=== PATIENT | female | born 1995 | race African-American/Black ===

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

== ENCOUNTER 2018-05-03 14:27 | Emergency (ER) | payer OTHER | END 2018-05-03 19:40 | disposition home or self-care (01) | LOC: JER 14:27 → JERFT 19:40 ==

== ENCOUNTER 2021-11-16 20:55 | Emergency (ER) | payer OTHER ==
[2021-11-16 21:04] VITALS: BP 112/66; PULSE 88; RESP 18; TEMP 98.4; BMI 26.6
[2021-11-16 21:47] LABS: EPI CELLS >36 /uL (0-25.1); HYALINE CASTS 13 /uL (0-3.1); PH,URINE 5.5 (5.0-8.0); URINE APPEARANCE CLOUDY; URINE BACTERIA 1975 /uL (0-1359); URINE BILIRUBIN NEGATIVE (NEGATIVE); URINE COLOR YELLOW; URINE GLUCOSE (UA) NEGATIVE (NEGATIVE); URINE KETONE TRACE (NEGATIVE); URINE LEUK ESTERASE 2+ (NEGATIVE); URINE NITRITE NEGATIVE (NEGATIVE); URINE PROTEIN TRACE (NEGATIVE); URINE RBC 8 /uL (0-23.9); URINE WBC 375 /uL (0-25.8)
[2021-11-16] MEDS ORDERED: ONDANSETRON *ODT* 4 MG TABLET SL ONE (22:01)
[2021-11-16] MEDS ORDERED: ONDANSETRON *ODT* 4 MG TABLET ONE (22:03)
== END 2021-11-17 00:01 | disposition home or self-care (01) ==
LOC: JER 20:55
DX: O21.9 Vomiting of pregnancy, unspecified (principal); N83.202 Unspecified ovarian cyst, left side; Z3A.01 Less than 8 weeks gestation of pregnancy
CPT/HCPCS: 76801-TC; 81003; 84703; 87086; 99284-25; Q0162

== ENCOUNTER 2024-02-01 10:41 | Emergency (ER) | payer OTHER ==
[2024-02-01 10:46] VITALS: BP 136/91; PULSE 76; RESP 18; TEMP 99; BMI 26.6
[2024-02-01] MEDS: ACETAMINOPHEN 325 MG TABLET (FP) PO ONE (12:05)
[2024-02-01] MEDS: KETOROLAC TROMETHAMINE 60 MG/2 ML VIAL IM ONE (12:05)
[2024-02-01] MEDS: LIDOCAINE 5% TOPICAL PATCH TP ONE (12:05)
[2024-02-01 15:03] LABS: HIV INTERPRETATION NEGATIVE (NEGATIVE)
[2024-02-01] MEDS ORDERED: LIDOCAINE PATCH REMOVAL MC ONE (22:00)
== END 2024-02-01 12:51 | disposition home or self-care (01) ==
LOC: FER 10:41
PROC: 3E0133Z Introduction of Anti-inflammatory into Subcutaneous Tissue, Percutaneous Approach (ICD-10-PCS; principal; 2024-02-01)
DX: M54.41 Lumbago with sciatica, right side (principal)
CPT/HCPCS: 36415; 86803; 87389; 99284-25